=== PATIENT | male | born 1980 ===

== ENCOUNTER 2025-01-13 13:54 | Outpatient (CLI) | payer BC, SELFPAY ==
--- NOTE | 2025-01-13 14:00 | CRLHL7_ITS ---
For Patients: As a result of the Cures Act, medical imaging exams and procedure reports are released immediately into your electronic medical record. You may view this report before your referring provider. If you have questions, please contact your health care provider. Indication: CHRONIC SINUSITIS Technique: Performed without IV contrast Comparison: None available Findings: Frontal sinuses: Clear. Ethmoid sinuses: Minimal mucosal thickening noted bilaterally. Maxillary sinuses: Mucosal thickening within the maxillary sinuses with small mucous retention cysts. The maxillary sinus drainage pathways are patent on both sides. Sphenoid sinuses: Mild mucosal thickening bilaterally. Partial obstruction of the sphenoethmoidal recesses. Nasal Cavity: Postop changes. No polyps. Bilateral paradoxical turn of the middle turbinates. Slight curvature of the septum. No TMJ abnormalities identified. The visualized portions of the orbits, intracranial contents and upper soft tissue neck are grossly negative. Impression: 1. Moderate bilateral maxillary sinus disease. 2. Milder sinus disease elsewhere including the sphenoid and ethmoid sinuses. Please note that all CT scans at this facility use dose modulation, iterative reconstruction, and/or weight-based dosing when appropriate to reduce radiation dose to as low as reasonably achievable. Dictated by Lior Schuler MD @ 01/14/2025 12:37:18 PM (Electronically Signed)
== END 2025-01-13 13:55 | disposition home or self-care (01) ==
LOC: CT 13:56
PROVIDERS: Visit Provider Physician Assistant
DX: J32.9 Chronic sinusitis, unspecified (principal); J32.0 Chronic maxillary sinusitis; R06.83 Snoring; G47.33 Obstructive sleep apnea (adult) (pediatric)
CPT/HCPCS: 70486; 95806

== ENCOUNTER 2025-01-13 14:11 | Outpatient (CLI) | payer BC, SELFPAY ==
--- NOTE | 2025-02-03 12:21 | W.PM.SLEEP ---
Sleep Study Details Details Interpreting Provider: Stacy Date of Sleep Study: 01/13/25 Sleep Study Details: STUDY TYPE:? Home unattended ? BMI:? 27.32 ORDERING PROVIDER:? Stacy INDICATION:? Concern for sleep apnea ? SLEEP SUMMARY:? 350 minutes monitored RESPIRATORY SUMMARY:? AHI 10.5 per rule 1a, 5.0 per CMS guideline Low oxygen 86 0.7% of study oxygen less than 90% Snoring 98.8% PERIODIC LIMB MOVEMENTS OF SLEEP:? Not recorded CARDIAC:? Range 44-106, mean 57.5 beats per minute IMPRESSION:? Mild obstructive sleep apnea RECOMMENDATION: Treatment options include CPAP, dental appliance and/or airway expansion surgery.
== END 2025-01-13 14:12 | disposition home or self-care (01) ==
PROVIDERS: Visit Provider Otolaryngology
DX: G47.33 Obstructive sleep apnea (adult) (pediatric) (principal)
CPT/HCPCS: 95806

== ENCOUNTER 2025-03-20 08:44 | Day surgery (SDC) | payer BC, SELFPAY ==
[2025-03-20] VITALS (12 sets, daily range): BP systolic 116–139; BP diastolic 83–101; PULSE 52–84; RESP 12–16; TEMP 36.6–36.8; O2SAT 95–99; BMI 27.3
[2025-03-20] MEDS: LACTATED RINGERS 1000 ML 1,000 ML 100 ML IV (08:50)
[2025-03-20] MEDS: SODIUM CHLORIDE 0.9 % (FLUSH) 10 ML SYRINGE IVF (09:20)
[2025-03-20] MEDS: OXYMETAZOLINE 0.05% NASAL SPRAY 2 SPRAY NOSTRIL-B (09:25)
[2025-03-20] MEDS: BUPIVACAINE 0.5%/EPINEPHRINE 0.9 MG (30.9 ML) INJECTION (10:30)
[2025-03-20] MEDS: MUPIROCIN 1 GM PACKET 1 APPLIC TOPICAL (10:42)
[2025-03-20] MEDS: AYR SALINE NASAL GEL 1 APPLIC NOSTRIL-B (10:51)
--- NOTE | 2025-03-20 11:13 | W.PM.ENTPROC ---
Procedure Note Date of procedure: 03/20/25 Procedure: Preop diagnosis deviated septum nasal obstruction, middle turbinate shauna, sinonasal headache postoperative same Procedure nasal septoplasty, endoscopic partial resection turbinate bullosa Under general endotracheal anesthesia the patient prepped draped in fashion decongested injected. A right hemitransfixion incision was made. Left anterior tunnel was developed. Vertical incision was made through the cartilage and a right mid posterior tunnel created. The deflected right superior portion of septal bone and cartilage was resected in a single piece returned to intraseptal space. The anterior septum was easily moved to midline after freeing it from its left attachments. The hemitransfixion was closed with 2 4-0 chromic sutures The remainder procedure was done with the available assistance of the 0 degree endoscope. The right middle turbinate shauna bullosa was incised along its inferolateral aspect the bone infractured and the turbinate crushed with the [place] forceps. This was repeated on the left side in identical fashion. Silastic stents were secured on either side of the septum. Merocel packing was placed in the middle meatus on each side. The patient procedure well was taken recovery satisfactory condition. Blood loss was 5 mL. Surgeon: Johnson Kumar MD
--- NOTE | 2025-03-20 11:27 | P.ANES_ITS ---
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
--- NOTE | 2025-03-20 11:27 | W.ANESCHARGE ---
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
[2025-03-20] MEDS: IBUPROFEN 600 MG TABLET PO (11:48)
== END 2025-03-20 12:48 | disposition home or self-care (01) ==
LOC: OR 08:45
PROVIDERS: Visit Provider Otolaryngology
PROC: (CPT 31231; principal; 2025-03-20 10:00)
DX: J34.2 Deviated nasal septum (principal); R51.9 Headache, unspecified; J34.3 Hypertrophy of nasal turbinates; G47.33 Obstructive sleep apnea (adult) (pediatric)
CPT/HCPCS: 30520; 31240; 00160; A9270; J0330; J1100; J2405; J2704; J3010; J7120